=== PATIENT | female | born 1955 | race Caucasian/White ===

== ENCOUNTER 2022-03-17 17:03 | Inpatient (IN) | payer MEDICARE, OTHER ==
[~2022-03-17] VITALS: Ht 137.2 cm; Wt 60.9 kg
[2022-03-17 17:41] LABS: BASOPHIL 0.2 % (0-2); EOSINOPHIL 0 % (0-7); HCT 39.8 % (37.0-47.0); HGB 13.3 g/dl (12.5-16.0); LYMPHOCYTE 6.2 % (15-48); MCH 29.9 pg (25.0-31.0); MCHC 33.4 g/dL (32.0-36.0); MCV 89.4 fL (78.0-100.0); MONOCYTE 5.3 % (0-12); MPV 10.7 fL (6.0-9.5); NEUTROPHIL 87.8 % (41-80); NRBC 0; PLT 275 K/uL (150-400); RBC 4.45 M/uL (4.20-5.40); RDW 12.1 % (11.5-14.0); WBC 11.4 K/uL (4.0-10.5)
[2022-03-17 17:45] LABS: INR 0.95 (0.9-1.2); PROTHROMBIN TIME 12.4 SECONDS (11.9-13.9); PTT 25.9 SECONDS (24.9-34.6)
[2022-03-17 18:01] LABS: LACTIC ACID 0.7 mmol/L (0.4-1.9)
[2022-03-17 18:08] LABS: ALBUMIN 3.5 g/dL (3.4-5.0); CREATININE 0.83 mg/dL (0.51-0.95); GLOBULIN (CALCULATION) 3.6 g/dL; POTASSIUM 3.7 mmol/L (3.5-5.1); TOTAL PROTEIN 7.1 g/dL (6.4-8.2)
[2022-03-17 18:40] LABS: BILIRUBIN 1+ mg/dL (NEGATIVE); BLOOD 2+ Ery/uL (NEGATIVE); CLARITY CLEAR (CLEAR); COLOR YELLOW (YELLOW); GLUCOSE (U) NORMAL (NORMAL); LEUKOCYTES NEGATIVE Leu/uL (NEGATIVE); NITRITE NEGATIVE (NEGATIVE); PROTEIN 2+ mg/dL (NEGATIVE); SPECIFIC GRAVITY >=1.030 (1.001-1.030); UROBILINOGEN 0.2 mg/dL (0.2-1.0)
[2022-03-17 18:44] LABS: BACTERIA 3+
[2022-03-17 18:44] LABS: AMPHETAMINES POSITIVE (NEGATIVE); BARBITURATES NEGATIVE (NEGATIVE); ECSTASY (MDMA) NEGATIVE (NEGATIVE); MARIJUANA (THC) NEGATIVE (NEGATIVE); METHADONE NEGATIVE (NEGATIVE); OPIATES POSITIVE (NEGATIVE); OXYCODONE POSITIVE (NEGATIVE)
[2022-03-17] MEDS ORDERED: ELAVIL25 MG PO (22:41)
[2022-03-17] MEDS ORDERED: OXYCONTIN20 MG PO (22:42)
[2022-03-17] MEDS ORDERED: TRAZODONE HCL50 MG PO (22:42)
[2022-03-17] MEDS ORDERED: VYVANSE60 MG PO (22:42)
[2022-03-17] MEDS ORDERED: VITAMIN D3125 MC1 PO (22:43)
[2022-03-17] MEDS ORDERED: ROCALTROL 0.0.25 MCG PO (22:43)
[2022-03-17] MEDS ORDERED: DEMADEX20 MG PO (22:44)
[2022-03-17] MEDS ORDERED: KLOR-CON 1010 MEQ PO (22:44)
[2022-03-17] MEDS ORDERED: ELIQUIS5 MG PO (22:44)
[2022-03-17] MEDS ORDERED: FOLIC ACID1 MG PO (22:44)
[2022-03-17] MEDS ORDERED: BACTRIM DS TAB1 EACH PO (22:45)
[2022-03-17] MEDS ORDERED: OYSTER SHELL C500 MG PO (22:45)
[2022-03-17] MEDS ORDERED: SYNTHROID150 MCG PO (22:45)
[2022-03-18 00:43] LABS: HCT 38.1 % (37.0-47.0); HGB 12.8 g/dL (12.5-16.0)
[2022-03-18 05:51] LABS: BASOPHIL 0.2 % (0-2); EOSINOPHIL 0 % (0-7); HCT 37.4 % (37.0-47.0); HGB 12.2 g/dl (12.5-16.0); LYMPHOCYTE 8.4 % (15-48); MCH 29.5 pg (25.0-31.0); MCHC 32.6 g/dL (32.0-36.0); MCV 90.3 fL (78.0-100.0); MONOCYTE 6.3 % (0-12); MPV 10.5 fL (6.0-9.5); NEUTROPHIL 84.4 % (41-80); NRBC 0; PLT 264 K/uL (150-400); RBC 4.14 M/uL (4.20-5.40); RDW 12.2 % (11.5-14.0); WBC 11.6 K/uL (4.0-10.5)
[2022-03-18 05:59] LABS: INR 0.98 (0.9-1.2); PROTHROMBIN TIME 12.7 SECONDS (11.9-13.9); PTT 23.7 SECONDS (24.9-34.6)
[2022-03-18 06:12] LABS: BUN/CREAT RATIO (CALC) 38.9 RATIO; CREATININE 0.9 mg/dL (0.51-0.95); POTASSIUM 3.5 mmol/L (3.5-5.1)
[2022-03-18 14:05] LABS: HGB 12.3 g/dL (12.5-16.0)
[2022-03-19 06:04] LABS: HCT 35.3 % (37.0-47.0); HGB 11.4 g/dl (12.5-16.0); MCH 29.9 pg (25.0-31.0); MCHC 32.3 g/dL (32.0-36.0); MCV 92.7 fL (78.0-100.0); MPV 10.7 fL (6.0-9.5); RBC 3.81 M/uL (4.20-5.40); RDW 12.1 % (11.5-14.0); WBC 8.5 K/uL (4.0-10.5)
[2022-03-19 06:23] LABS: IRON % SATURATION 21.7 %SAT (20-50)
[2022-03-19 06:53] LABS: BUN/CREAT RATIO (CALC) 38.1 RATIO; CREATININE 0.97 mg/dL (0.51-0.95); POTASSIUM 3.9 mmol/L (3.5-5.1)
[2022-03-19] MEDS ORDERED: ZESTRIL2.5 MG PO (09:25)
[2022-03-19] MEDS ORDERED: MAG-OXIDE 400M400 MG PO (09:25)
[2022-03-19] MEDS ORDERED: MACROBID100 MG PO (09:25)
[2022-03-19] MEDS ORDERED: LOPRESSOR25 MG PO (09:25)
[2022-03-19] MEDS ORDERED: PROTONIX 40MG T40 MG PO (09:28)
[2022-03-19] MEDS ORDERED: NARCAN4 MG (09:38)
[2022-03-19 14:03] LABS: HGB 11.3 g/dL (12.5-16.0)
== END 2022-03-19 14:13 | disposition home or self-care (01) | DRG 377 ==
LOC: FER 17:03 → FTCU 18:59
PROVIDERS: Emergency Medicine; Nurse Practitioner Acute Care; ADMIT Family Medicine
DX: K92.2 Gastrointestinal hemorrhage, unspecified (principal); G92.8 Other toxic encephalopathy; D62 Acute posthemorrhagic anemia; N30.01 Acute cystitis with hematuria; I47.2 Ventricular tachycardia; I13.0 Hypertensive heart and chronic kidney disease with heart failure and stage 1 through stage 4 chronic kidney disease, or unspecified chronic kidney disease; J98.11 Atelectasis; E87.3 Alkalosis; Z20.822 Contact with and (suspected) exposure to COVID-19; T40.605A Adverse effect of unspecified narcotics, initial encounter; N18.2 Chronic kidney disease, stage 2 (mild); I50.9 Heart failure, unspecified; E03.9 Hypothyroidism, unspecified; I48.0 Paroxysmal atrial fibrillation; D63.1 Anemia in chronic kidney disease; G93.89 Other specified disorders of brain; K59.03 Drug induced constipation; G89.4 Chronic pain syndrome; I16.0 Hypertensive urgency; E66.9 Obesity, unspecified; F17.290 Nicotine dependence, other tobacco product, uncomplicated; R73.9 Hyperglycemia, unspecified; Z68.32 Body mass index [BMI] 32.0-32.9, adult; Z79.01 Long term (current) use of anticoagulants; Z86.718 Personal history of other venous thrombosis and embolism; Z79.899 Other long term (current) drug therapy; Z90.710 Acquired absence of both cervix and uterus; Z90.722 Acquired absence of ovaries, bilateral; Z80.3 Family history of malignant neoplasm of breast; Z98.41 Cataract extraction status, right eye; Z98.42 Cataract extraction status, left eye; Z89.612 Acquired absence of left leg above knee; Z89.511 Acquired absence of right leg below knee
CPT/HCPCS: 36415; 36600; 70450; 71045; 80048; 80053; 80305; 81001; 82271; 82607; 82803; 83036; 83540; 83550; 83605; 83690; 83880; 84145; 84439; 84443; 84481; 84484; 85014; 85018; 85025; 85610; 85730; 87076; 87088; 87186; 93005; 94010; 94760; C9113; G0480; J0696; J2310; J3420; J3475; J7030; U0002